=== PATIENT | female | born 1965 | race Caucasian/White ===

== ENCOUNTER 2025-05-08 11:06 | Outpatient (AMB) | payer BC, SELFPAY ==
--- OUTSIDE RECORDS SUMMARY | 2025-05-08 12:39 | XMS_ITS | Clinical Summary ---
Author Organization [facility] Address [address] [place] [address] Phone Care Team Providers Care Shift Supervisor Rn Name Role Phone Rosemarie Jara MD Primary Care Provider [phone] Allergies Active Allergy Reactions Criticality Noted Date Comments Jqjjborh-Qktzpinueif-Arunsze nb Hives Medium 05/04/2018 TRIPLE OINTMENT CREAM Sulfa (Sulfonamide Antibiotics) Hives High 05/04/2018 Sulfamethoxazole-Trimethopri m Rash High 02/18/2018 Medications montelukast (SINGULAIR) 10 mg tablet Take 1 Tablet by mouth daily. 2 Active lansoprazole (PREVACID SOLUTAB) 30 mg dispersible tablet Take 1 Tab by mouth daily. Active fluticasone-lucille meterol (ADVAIR DISKUS) 250-50 mcg/dose diskus inhaler Inhale 1 puff by mouth 2 (two) times a day. Rinse mouth with water after use to reduce aftertaste and incidence of candidiasis. Do not swallow. 3 each 4 5 01/19/20 26 Active losartan (COZAAR) 100 mg tablet Take 1 tablet (100 mg total) by mouth 1 (one) time each day. 90 each 5 5 Active cholecalciferol (Vitamin D3) 50 mcg (2,000 unit) tablet Take 1 tablet (2,000 Units total) by mouth 1 (one) time each day. 90 tablet 2 5 Active escitalopram (LEXAPRO) 20 mg tablet Take 1 tablet (20 mg total) by mouth 1 (one) time each day. 30 tablet 1 5 Active levalbuterol (XOPENEX HFA) 45 mcg/actuation inhaler Inhale 1-2 puffs by mouth. Active polyethylene glycol (Golytely) 236-22.74-6.74 -5.86 gram solution Take 4L by mouth once for one dose. May substitue any PEG. Starting at 2PM the day before your procedure drink 1 8oz glasses at your own pace until you complete half of the gallon. Finish 2nd half of the gallon at 8PM. 4000 mL 5 Active bisacodyL (DULCOLAX) 5 mg EC tablet Take 2 tablets by mouth right before beginning bowel prep. 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 Asthma 05/04/2018 Cough 05/04/2018 GERD (gastroesophageal reflux disease) 8 MARCEL (obstructive sleep apnea) 05/04/2018 Overview (09/18/2024): NOT TREATED (Aug 2019) Anxiety 01/28/2018 Allergic rhinitis 04/15/2017 Hypertension 04/15/2017 Depression 02/26/2016 Left ventricular hypertrophy 03/22/2014 Mitral regurgitation 03/22/2014 Arthritis 02/07/2014 Venous insufficiency 05/10/2013 Iron deficiency anemia 09/04/2011 Encounters Date Type Department Care Team Description 04/13/2025 10:16 AM EDT Anesthesia Event [facility] [address] [place] [phone] Isidro Tirado DO 04/13/2025 9:34 AM EDT - 04/13/2025 11:59 PM EDT Hospital Encounter [facility] [address] [place] [phone] Angélica España MD Guerin, Erik R, CRNA Walsh, Michael, DO Colon cancer screening Discharge Disposition: Home or Self Care 03/16/2025 2:30 PM EDT Office Visit Pulmonolgy - [place] [address] [place] [address] Marsha Farrell MD Moderate persistent asthma, unspecified whether complicated (Primary Dx) from Last 3 Months Immunizations Name Administration Dates Next Due Pneumococcal conjugate 13 va lent (Prevnar 13, PCV13) 2mo and older 07/16/2016 Pneumococcal polysaccharide 23 valent (Pneumovax 23) 2yo and older 07/25/2007 Tdap Tetanus diptheria acell ular pertussis (Boostrix; Adacel) 7yo and older 05/05/2012 Surgical History Surgery Date Site/Laterality Comments KNEE SURGERY Right PROCEDURE: HISTORICAL KNEE SURGERY OTHER SURGICAL HISTORY PROCEDURE: HISTORY OTHER; COMMENT: Colposcopy BREAST LUMPECTOMY Left X2 COLONOSCOPY ESOPHAGOGASTRODUODENOSCOPY Medical History Medical History Date Comments Allergic rhinitis 04/15/2017 DX:Allergic rh initis Anxiety 01/28/2018 DX:Anxiety Arthritis 02/07/2014 DX:Arthritis Asthma 05/04/2018 DX:Asthma Cough 05/04/2018 DX:Cough Depression 02/26/2016 DX:Depression GERD (gastroesophageal reflu x disease) 05/04/2018 DX:GERD (gastroesophageal re flux disease) History of herpes zoster 01/08/2017 DX:Hist ory of herpes zoster Hypertension 04/15/2017 DX:Hypertension Iron deficiency anemia 09/04/2011 DX:Iron d eficiency anemia Left ventricular hypertrophy 03/22/2014 DX: Left ventricular hypertrophy Mitral regurgitation 03/22/2014 DX:Mitral r egurgitation MARCEL (obstructive sleep apnea) 05/04/2018 DX :MARCEL (obstructive sleep apnea) Venous insufficiency 05/10/2013 DX:Venous i nsufficiency Family History Medical History Relation Name Comments Hypertension Father Hypertension Mother Relation Name Status Comments Father Mother Social History Tobacco Use Types Packs/Day Years Used Date Smoking Tobacco: Never Smokeless Tobacco: Never Tobacco Cessation:Counseling Given: Not Answered Alcohol Use Standard Drinks/Week Comments No 0 (1 standard drink = 0.6 oz pur e alcohol) Interpersonal Safety Answer Date Record ed Physical Abuse 04/13/2025 Verbal Abuse 04/13/2025 Comments No Sex and Gender Information Value Date Recorded Sex Assigned at Female 08/09/2024 1:18 PM EST Legal Sex Female 4:45 AM EST Gender Identity Female 08/09/2024 1:18 PM EST Sexual Orientation Straight 04/13/2025 9: 34 AM EDT Obstetrics History Last Filed Vital Signs Vital Sign Reading Time Taken Comments Blood Pressure 140/50 04/13/2025 10:52 AM EDT Pulse 73 04/13/2025 10:52 AM EDT Temperature 36.5 C (97.7 F) 04/13/2025 10:32 AM EDT Respiratory Rate 16 04/13/2025 10:52 AM EDT Oxygen Saturation 100% 04/13/2025 10:52 AM EDT Inhaled Oxygen Concentration - - Weight 99.8 kg (220 lb) 04/13/2025 10:09 AM EDT Height 170.2 cm (5' 7 ) 04/13/2025 10:09 AM EDT Body Mass Index 34.46 04/13/2025 10:09 AM EDT Plan of Treatment Upcoming Encounters Date Type Department Care Team (Late st Contact Info) Description 03/20/2026 2:00 PM EDT Office Visit Pulmonolgy - [place] [address] [place] [phone] Marsha Farrell MD [address] [place] [address] Health Maintenance Due Date Last Done Comments Breast Cancer Screening 1965 COVID-19 Vaccine (#1) 1969 Zoster Vaccines (1 of 2) 12/12/1983 Pneumococcal Vaccine: 50+ Years (3 of 3 - PPSV23, PCV20 or PCV21) 09/10/2016 07/16/2016, 07/25/2007 HIV Screening 08/29/2022 Hepatitis C Screening 08/29/2022 Social Influencers of Health Screening 08/29/2022 Depression Screening 09/20/2024 RSV Immunization Adult Patients (1 - Risk 60-74 years 1-dose series) 2024 Influenza Vaccine (#1) 2025 8, 07/01/2017, 07/04/2015, Additional history exists Cervical Cancer Screening: Pap Smear 10/28/2025 10/28/2022 Hypertension/CHF/CAD Annual BMP Blood Test 01/29/2026 01/29/2025, 12/13/2023 DTaP,Tdap,and Td Vaccines (3 - Td or Tdap) 07/12/2028 07/12/2018, 05/05/2012 Cholesterol Screening (Lipid Panel) 01/29/2030 01/29/2025, 12/13/2023 Colorectal Cancer Screening: Colonoscopy 04/13/2035 04/13/2025, 12/17/2014 HIB Vaccines Aged Out No longer eligi ble based on patient's age to complete this topic HPV Vaccines Aged Out No longer eligi ble based on patient's age to complete this topic Hepatitis A Vaccines Aged Out No long er eligible based on patient's age to complete this topic Hepatitis B Vaccines Aged Out No long er eligible based on patient's age to complete this topic IPV Vaccines Aged Out No longer eligi ble based on patient's age to complete this topic MMR Vaccines Aged Out No longer eligi ble based on patient's age to complete this topic Meningococcal ACWY Vaccine Aged Out N o longer eligible based on patient's age to complete this topic Meningococcal B Vaccine Aged Out No l onger eligible based on patient's age to complete this topic RSV Immunization Patients Under 20 months Aged Out No longer eligible based on patient's age to complete this topic Varicella Vaccines Aged Out No longer eligible based on patient's age to complete this topic Medical Devices Implanted Type Area Synthetic Chemist Device Identifier Shelf Expiration Date Model / Serial / Lot Implants Implants Right: Leg Description:PLATES AND SCREW FROM FRACTURE Procedures Procedure Name Priority Date/Time Associated Diagnosis Comments COLONOSCOPY Routine 04/13/2025 10:31 AM EDT Colon cancer screening EXTERNAL ENDOSCOPY REPORT Routine 03/26/2025 11:02 AM EDT COMPREHENSIVE METABOLIC PANEL Routine 01/29/2025 10:04 AM EDT Primary hypertension Iron deficiency anemia, unspecified iron deficiency anemia type Depression, unspecified depression type Adult general medical examination Vitamin D deficiency LIPID PANEL WITH REFLEX TO DIRECT LDL Routine 01/29/2025 10:04 AM EDT Primary hypertension Iron deficiency anemia, unspecified iron deficiency anemia type Depression, unspecified depression type Adult general medical examination Vitamin D deficiency HM PAP SMEAR Routine 10/28/2022 from Last 3 Months or Most Recently Relevant to Health Maintenance Results * COLONOSCOPY Anesthesia - MAC; [facility] ENDOSCOPY (04/13/2025 10:31 AM EDT) Anatomical Region Laterality Modality Endoscopy 04/13/2025 10:1 7 AM EDT Impressions 04/13/2025 10:31 AM EDT - The examined portion of the ileum was normal. - Internal hemorrhoids. - The entire examined colon is normal. - No specimens collected. Recommendation: - Repeat colonoscopy in 10 years for screening purposes. Narrative 04/13/2025 10:31 AM EDT [facility] GI Patient Name: Kendra Owusu Procedure Date: 04/13/2025 10:17 AM Date of : 1965 Age: 59 Gender: Female Note Status: Finalized Attending MD: Angélica España MD, Procedure Date No Time: 04/13/2025 Procedure: Colonoscopy Indications: Screening for colorectal malignant neoplasm Providers: Angélica España MD Referring MD: Rosemarie Jara MD Medicines: Propofol per Anesthesia Complications: No immediate complications. Estimated Blood Loss: Estimated blood loss: none. Procedure: Pre-Anesthesia Assessment: - ASA Grade Assessment: III - A patient with severe systemic disease. After I obtained informed consent, the scope was passed under direct vision. Throughout the procedure, the patient's blood pressure, pulse, and oxygen saturations were monitored continuously.The Colonoscope was introduced through the anus and advanced to the terminal ileum. The colonoscopy was performed without difficulty. The patient tolerated the procedure well. The quality of the bowel preparation was excellent. Findings: The perianal and digital rectal examinations were normal. The terminal ileum appeared normal. Internal hemorrhoids were found during retroflexion. The hemorrhoids were Grade I (internal hemorrhoids that do not prolapse). The entire examined colon appeared normal. Procedure Code(s): --- Professional --- G0121, Colorectal cancer screening; colonoscopy on individual not meeting criteria for high risk Diagnosis Code(s): --- Professional --- Z12.11, Encounter for screening for malignant neoplasm of colon CPT copyright 2020 [employer]. All rights reserved. The codes documented in this report are preliminary and upon diamond polisher review may be revised to meet current compliance requirements. Angélica España MD 04/13/2025 10:31:44 AM This report has been signed electronically.Angélica España MD Number of Addenda: 0 Note Initiated On: 04/13/2025 10:17 AM Scope In: Scope Out: Endoscopy Department at [facility] - [address] [place] [id number] Procedure Note Angélica España MD - 04/13/2025 [facility] GI Patient Name: Kendra Owusu Procedure Date: 04/13/2025 10:17 AM Date of : 1965 Age: 59 Gender: Female Note Status: Finalized Attending MD: Angélica España MD, Procedure Date No Time: 04/13/2025 Procedure: Colonoscopy Indications: Screening for colorectal malignant neoplasm Providers: Angélica España MD Referring MD: Rosemarie Jara MD Medicines: Propofol per Anesthesia Complications: No immediate complications. Estimated Blood Loss: Estimated blood loss: none. Procedure: Pre-Anesthesia Assessment: - ASA Grade Assessment: III - A patient with severe systemic disease. After I obtained informed consent, the scope was passed under direct vision. Throughout theprocedure, the patient's blood pressure, pulse, and oxygen saturations were monitored continuously.The Colonoscope was introduced through the anus and advanced to the terminal ileum. The colonoscopy was performed without difficulty. The patient tolerated the procedure well. The quality of the bowel preparation was excellent. Findings: The perianal and digital rectal examinations were normal. The terminal ileum appeared normal. Internal hemorrhoids were found duringretroflexion. The hemorrhoids were Grade I (internal hemorrhoids that do not prolapse). The entire examined colon appeared normal. Procedure Code(s): --- Professional --- G0121, Colorectal cancer screening; colonoscopy on individual not meeting criteria for high risk Diagnosis Code(s): --- Professional --- Z12.11, Encounter for screening for malignantneoplasm of colon CPT copyright 2020 [employer]. All rights reserved. The codes documented in this report are preliminary and upon diamond polisher reviewmay be revised to meet current compliance requirements. Angélica España MD 04/13/2025 10:31:44 AM This report has been signed electronically.Angélica España MD Number of Addenda: 0 Note Initiated On: 04/13/2025 10:17 AM Scope In: Scope Out: Endoscopy Department at [facility] - [address] [place] [phone] IMPRESSION: - The examined portion of the ileum was normal. - Internal hemorrhoids. - The entire examined colon is normal. - No specimens collected. Recommendation: - Repeat colonoscopy in 10 years for screening purposes. Angélica España MD GI~PROCEDURE ORDERABLES Final Result * External Endoscopy (03/26/2025 11:02 AM EDT) Anatomical Region Laterality Modality Endoscopy Historical Provider GI~PROCEDURE ORDERABLES F inal Result * (ABNORMAL) Lipid panel with reflex to direct LDL (01/29/2025 10:04 AM EDT) Cholesterol 200 0 - 200 mg/dL LAB [facility] Triglycerides 121 0 - 150 mg/dL LAB CHEMISTRY METHOD 01/29/2025 4:34 PM [facility] HDL 60 >=40 mg/dL LAB CHEMISTRY METHOD 01/29/2025 4:34 PM [facility] LDL Calculated 116(H) 0 - 100 mg/dL LAB CHEMISTRY METHOD 01/29/2025 4:34 PM [facility] VLDL Cholesterol Omero 24.2 mg/dL LAB CHEMISTRY METHOD 01/29/2025 4:34 PM [facility] Non HDL Chol. (LDL+VLDL) 140 <145 mg/dL LAB CHEMISTRY METHOD 01/29/2025 4:34 PM [facility] Chol/HDL Ratio 3.3 0.0 - 4.4 LAB CHEMISTRY METHOD 01/29/2025 4:34 PM [facility] Blood Venous blood specimen / Unknown Venipuncture / Unknown 01/29/2025 10:04 AM EDT 01/29/2025 10:04 AM EDT us Rosemarie Jara MD LAB BLOOD ORDERABLES Final Res ult [facility] [address] [place] [address], [place] [phone] * (ABNORMAL) Comprehensive metabolic panel (01/29/2025 10:04 AM EDT) Pathologist [facility] Sodium 143 133 - 145 mmol/L LAB CHEMISTRY METHOD 01/29/2025 4:34 PM [facility] Potassium 5.1 3.5 - 5.5 mmol/L LAB CHEMISTRY METHOD 01/29/2025 4:34 PM [facility] Chloride 111(H) 96 - 110 mmol/L LAB CHEMISTRY METHOD 01/29/2025 4:34 PM [facility] CO2 27 21 - 32 mmol/L LAB CHEMISTRY METHOD 01/29/2025 4:34 PM [facility] Anion Gap 5 3 - 11 LAB CHEMISTRY METHOD 01/29/2025 4:34 PM [facility] Glucose 82 70 - 100 mg/dL LAB CHEMISTRY METHOD 01/29/2025 4:34 PM [facility] BUN 16 5 - 25 mg/dL LAB CHEMISTRY METHOD 01/29/2025 4:34 PM [facility] Creatinine 0.65 0.50 - 1.10 mg/dL LAB CHEMISTRY METHOD 01/29/2025 4:34 PM [facility] eGFR 101 >=60 mL/min/1. 73m2 LAB CHEMISTRY METHOD 01/29/2025 4:34 PM [facility] Comment:Calculation based on the Chronic Kidney Disease Epidemiology Collaboration (CKD-EPI) equation refit without adjustment for race. BUN/Creatinine Ratio 24.6 LAB CHEMISTRY METHOD 01/29/2025 4:34 PM [facility] Calcium 8.8 8.5 - 10.5 mg/dL LAB CHEMISTRY METHOD 01/29/2025 4:34 PM EDT [facility] AST (SGOT) 26 10 - 42 unit/L LAB CHEMISTRY METHOD 01/29/2025 4:34 PM [facility] ALT (SGPT) 36 10 - 60 unit/L LAB CHEMISTRY METHOD 01/29/2025 4:34 PM [facility] Alkaline Phosphatase 103 42 - 121 unit/L LAB CHEMISTRY METHOD 01/29/2025 4:34 PM [facility] Total Protein 6.7 6.0 - 8.0 g/dL LAB CHEMISTRY METHOD 01/29/2025 4:34 PM [facility] Albumin 3.6 3.2 - 5.0 g/dL LAB CHEMISTRY METHOD 01/29/2025 4:34 PM [facility] Total Bilirubin 0.3 0.0 - 1.4 mg/dL LAB CHEMISTRY METHOD 01/29/2025 4:34 PM [facility] Blood Venous blood specimen / Unknown Venipuncture / Unknown 01/29/2025 10:04 AM EDT 01/29/2025 10:04 AM EDT Rosemarie Jara MD LAB BLOOD ORDERABLES Final Res ult [facility] [address] [place] [address], * Pap Smear (10/28/2022) Pap smear no interpretation , abstracted Historical Provider HEALTH MAINTENANCE Final Result from Last 3 Months or Most Recently Relevant to Health Maintenance Insurance [facility] Care Teams Shift Supervisor Rn Relationship Specialty Start Date End Date Rosemarie Jara MD [address] [phone] PCP - General Internal Medicine 02/06/19
--- OUTSIDE RECORDS SUMMARY | 2025-05-08 12:39 | XMS_ITS | Clinical Summary ---
Author Organization [facility] Address [address] [place] [phone] Phone Care Team Providers Care Auto Apprentice Mechanic Name Role Phone Rosemarie Jara MD Primary Care Provider Allergies Active Allergy Reactions Criticality Noted Date Comments Sulfamethoxazole-Trimethoprim 2017 Sulfa (Sulfonamide Antibiotics) 09/2017 Medications fluticasone-lucille meterol (ADVAIR DISKUS) 500-50 mcg/dose DISKUS Inhale 1 puff into the lungs 2 (two) times a day. Active losartan (COZAAR) 25 MG tablet Take 25 mg by mouth daily. Active montelukast (SINGULAIR) 10 mg tablet Take 10 mg by mouth. Active cycloSPORINE (RESTASIS) 0.05 % suspension INSTILL 1 DROP TWICE DAILY INTO BOTH EYES CONTINUOUSLY 3 Active escitalopram oxalate (LEXAPRO) 20 MG tablet Take 1 tablet by mouth every morning. 3 Active lansoprazole (PREVACID) 30 MG capsule Take 1 capsule by mouth 2 (two) times a day. 3 Active clobetasoL 0.05 % ltpm Apply topically. 4 Active cholecalciferol (VITAMIN D3) 2,000 unit tablet Take 2,000 Units by mouth. 5 Active halobetasol (ULTRAVATE) 0.05 % ointment See Instructions, Apply thin film to vulva daily x 2 weeks afterwards apply to area 2 to 3 times a week, # 50 Gm, 0 Refills, Maintenance, 01/31/25 11:07:00 AM EDT, Ointment, [id number], Partial fill upon patient request if the prescription is for a schedule II opioid drug., Apply thin film to vulva daily x 2 weeks afterwards apply to area 2 to 3 times a week, 157, cm, 01/31/25 10:17:00 EDT, Height, 93.8, kg, 06/02/23 15:07:00 EDT, Dry Weight Active Active Problems Problem Noted Date Diagnosed Date Class 2 obesity 05/07/2023 05/07/2023 Encounters Date Type Department Care Team Description 03/09/2025 Telephone [facility] at [address] [address] Blair Abel PA-C 03/09/2025 Telephone [facility] at [address] [place] [address] Isabela Kelly, GLASS LATHE OPERATOR Labs 03/07/2025 1:50 PM EDT Office Visit [facility] at [address] [address] Melissa Holcomb PA-C Acute cystitis without hematuria (Primary Dx) from Last 3 Months Immunizations Immunization Administration Dates Next Due INFLUENZA, SPLIT VIRUS, TRIVALENT PF 07/01/2017, 07/04/2015 INFLUENZA, SPLIT VIRUS, TRIVALENT W/ PRESERVATIV E IM 06/20/2014 Influenza Quadrivalent Preservative Free IM 06/21 Tdap 07/12/2018 Social History Tobacco Use Types Packs/Day Years Used Date Smoking Tobacco: Never Smokeless Tobacco: Never Tobacco Cessation:Counseling Given: Not Answered Alcohol Use Standard Drinks/Week Comments No 0 (1 standard drink = 0.6 oz pur e alcohol) Education Answer Date Recorded Are you interested in more education? Not on belkis e 01/15/2023 Are you concerned about learning? Not on file 01/15/2023 No 01/15/2023 No 01/15/2023 Digital Access Answer Date Recorded No 02/15/2023 No 02/15/2023 Reliable internet access at home? Not on file 02/15/2023 Device with a working camera? Not on file Intimate Partner Violence Answer Date R ecorded Are you denied basic needs s uch as food, clothing, or medical care? No 07/21/2023 In the past 12 months have y ou been in a relationship with a person who hurts, threatens, or tries to control you? No 07/21/2023 Are you denied basic needs s uch as food, clothing, or medical care? No 07/21/2023 In the past 12 months have y ou been in a relationship with a person who hurts, threatens, or tries to control you? No 07/21/2023 Comments Unknown Sex and Gender Information Value Date Recorded Sex Assigned at Female 02/18/2018 11:40 AM EDT Legal Sex Female 9:42 PM EDT Gender Identity Female 02/18/2018 11:40 AM EDT Sexual Orientation Straight 02/18/2018 11 :40 AM EDT Last Filed Vital Signs Vital Sign Reading Time Taken Comments Blood Pressure 131/80 03/07/2025 2:12 PM EDT Pulse 78 03/07/2025 2:12 PM EDT Temperature 36.7 C (98 F) 03/07/2025 2:12 PM EDT Respiratory Rate 18 03/07/2025 2:12 PM EDT Oxygen Saturation 97% 03/07/2025 2:12 PM EDT Inhaled Oxygen Concentration - - Weight 90.7 kg (200 lb) 07/21/2023 8:16 PM EDT Height 157.5 cm (5' 2 ) 07/21/2023 8:16 PM EDT Body Mass Index 36.58 07/21/2023 8:16 PM EDT Plan of Treatment Health Maintenance Due Date Last Done Comments CREATININE LEVEL 1964 POTASSIUM LEVEL 1964 DEPRESSION SCREENING 1976 HEPATITIS C SCREENING 1982 HIV ONE-TIME SCREENING (18-6 5 YEARS) 1982 PAP SMEAR 1985 SCREENING FOR DIABETES 12/12/1999 MAMMOGRAM 2004 COLOGUARD 2009 COLONOSCOPY 2009 COLORECTAL CANCER SCREENING 2009 FIT TEST 2009 FOBT 2009 SIGMOIDOSCOPY 2009 VIRTUAL COLONOSCOPY 2009 PNEUMOCOCCAL VACCINES (50+ y ears) (1 of 1 - PCV) 2014 ZOSTER VACCINES (1 of 2) 2014 COVID-19 VACCINE (1 - 2023-2 5 season) 2024 Adult Td,Tdap Booster 07/12/2028 07/12/2018 LIPID PANEL 01/29/2030 01/29/2025 RSV VACCINE (1 - 1-dose 75+ series) 12/12/2039 SMOKING STATUS SCREENING (On ce After 26 Yrs) Completed 08/14/2024 HEPATITIS A VACCINES Aged Out No long er eligible based on patient's age to complete this topic HIB VACCINES Aged Out No longer eligi ble based on patient's age to complete this topic MENINGOCOCCAL VACCINES (ACWY) Aged Out No longer eligible based on patient's age to complete this topic MENINGOCOCCAL VACCINES (B) Aged Out N o longer eligible based on patient's age to complete this topic Medical Devices Not on file Procedures Procedure Name Priority Date/Time Associated Diagnosis Comments URINE CULTURE Routine 03/07/2025 2:45 PM EDT Acute cystitis without hematuria POCT URINE DIPSTICK Routine 03/07/2025 2 :21 PM EDT from Last 3 Months Results * (ABNORMAL) Urine Culture (03/07/2025 2:45 PM EDT) Special Requests None 03/07/2025 2:45 PM EDT [facility] Urine Culture 10,000 to 100,000 colony forming units per mL MIXED JESSIE (3 OR MORE COLONY TYPES) Culture indicates contamination . Please resubmit if necessary.(A) 03/09/2025 8:43 AM EDT [facility] Urine (Urine) 03/07/2025 2:4 5 PM EDT 03/07/2025 4:36 PM EDT us Melissa Holcomb PA-C MICROBIOLOGY - GENER AL ORDERABLES Final Result [facility] [address] [place] [address] * (ABNORMAL) POCT Urine Dipstick (Automated) (03/07/2025 2:21 PM EDT) COLOR Yellow [facility] TURBIDITY Clear [facility] GLUCOSE, POCT Negative Negative [facility] KETONE, POCT Negative Negative [facility] OCCULT BLOOD, POCT Negative Negative [facility] SPECIFIC GRAVITY, POCT 1.015 1.001 - 1.030 [facility] ALBUMIN, POCT Negative Negative [facility] Bili Negative Negative [facility] Urobilinogen 0.2 <1.0 [facility] NITRITE, POCT Negative Negative [facility] PH, POCT 7.5 5.0 - 8.0 [facility] WBC SCREEN, POCT 1+(A) Negative RAILROAD YARD WORKER EDEN [facility] 03/07/2025 2:21 PM EDT 03/07/2025 2:23 PM EDT Melissa Holcomb PA-C POINT OF CARE TEST O RDERABLES Final Result [facility] [address] [address], [facility] [phone] from Last [address] [place] [address] [place] [address] [facility] [address] [place] [address] [place] [address] [place] [address] [place] [address] [address] [place] [address] [employer] FED[employer]AL [place] [employer] FEDERAL Member Subscriber Plan / Payer (Ef fective 2016-Present) Name:Andrew Ceci Relation to Subscriber:Self Name:Ceci Andrew Payer ID:Not on file Group ID:Not on file Type:Indemnity Address: [address] [place] [id number] Care Teams Auto Apprentice Mechanic Relationship Specialty Start Date End Date Rosemarie Jara MD [address] [phone] PCP - General Internal Medicine 04/14/21 Additional Source Comments The information contained in this document represents components of the legal health record. It is not the complete legal health record.[facility]
== END 2025-05-08 11:12 | disposition home or self-care (01) ==
PROVIDERS: Visit Provider Registered Nurse Emergency
DX: J30.89 Other allergic rhinitis (principal)
CPT/HCPCS: 95117; 95165

== ENCOUNTER 2025-05-28 09:50 | Outpatient (AMB) | payer BC, SELFPAY ==
--- OUTSIDE RECORDS SUMMARY | 2025-05-28 11:26 | XMS_ITS | Encounter Summary ---
Author Organization [facility] Address [address] [facility] [address] [place] [address] Phone Care Team Providers Care Foil Cutter Name Role Phone Emily Forbes MD Primary Care Provide r Rosemarie Jara MD Primary Care Provider Reason for Referral * Physical Therapy (Routine) - Closed Specialty Diagnoses / Procedures Referred By Hansa [place] Referred To Contact Physical Therapy Diagnoses Encounter for rehabilitation System, Provider Not In, [facility] [id number] [place] [address] Phone: tel: Referral ID Status Reason Start Date Expiration Date Visits Re quested Visits Authorized [id number] Closed 10/04/2017 02/08/2018 42 42 Encounter Details Date Type Department Care Team (Latest Contact Info) Description 10/14/2017 Transcribe Orders [facility] [address] [place] [phone] Nate Shi MD [address] [place] [address] [address] [place] [address] Encounter for rehabilitation (Primary Dx) Social History Tobacco Use Types Packs/Day Years Used Date Smoking Tobacco: Never Assessed Comments Unknown Sex and Gender Information Value Date Recorded Sex Assigned at Female 02/18/2018 11:40 AM EDT Legal Sex Female 9:42 PM EDT Gender Identity Female 02/18/2018 11:40 AM EDT Sexual Orientation Straight 02/18/2018 11 :40 AM EDT documented as of this encounter Plan of Treatment Scheduled Referrals Name Type Priority Associated Diagnoses Orde r Schedule Ambulatory referral to [facility] Physical Therapy Outpatient Referral Routine Encounter for rehabilitation Ordered: 10/14/2017 documented as of this encounter Visit Diagnoses Diagnosis Encounter for rehabilitation- Primary documented in this encounter Care Teams Foil Cutter Relationship Specialty Start Date End Date Emily Forbes MD [address] [place] [address] PCP - General Geriatric Psychiatry 07/17/17 04/13/21 Rosemarie Jara MD [address] [place] [phone] PCP - General Internal Medicine 04/14/21 documented as of this encounter Additional Source Comments The information contained in this document represents components of the legal health record. It is not the complete legal health record.[facility]
--- OUTSIDE RECORDS SUMMARY | 2025-05-28 11:26 | XMS_ITS | Clinical Summary ---
Author Organization [facility] Address [address] [place] [phone] Phone Care Team Providers Care Watch Band Assembler Name Role Phone Rosemarie Jara MD Primary Care Provider [phone] Allergies Active Allergy Reactions Criticality Noted Date [...] Refills, Maintenance, 01/31/25 11:07:00 AM EDT, Ointment, [id number], Partial fill upon patient request if the [...] Department Care Team Description 03/09/2025 Telephone [facility] at [address] [address] Bliar Abel PA-C 03/09/2025 Telephone [facility] at [address] [place] [address] Isabela Kelly, DAY TREATMENT CLINICIAN/ART THERAPIST Labs 03/07/2025 1:50 PM EDT Office Visit [facility] at [address] [address] Melissa Holcomb PA-C Acute cystitis without hematuria [...] HEPATITIS C SCREENING 1982 HIV ONE-TIME SCREENING (18-65 YEARS) 1982 PAP SMEAR 1985 SCREENING FOR DIABETES 12/12/1999 MAMMOGRAM 2004 COLOGUARD 2009 COLONOSCOPY 2009 COLORECTAL CANCER SCREENING 2009 FIT TEST 2009 FOBT 2009 SIGMOIDOSCOPY 2009 VIRTUAL COLONOSCOPY 2009 PNEUMOCOCCAL VACCINES (50+ years) (1 of 1 - PCV) 2014 ZOSTER VACCINES (1 of 2) 2014 INFLUENZA VACCINE (#1) 2025 8, 07/01/2017, 07/04/2015, Additional history exists COVID-19 VACCINE (1 - 2023- season) 2025 Adult Td,Tdap Booster 07/12/2028 07/12/2018 LIPID PANEL 01/29/2030 01/29/2025 RSV VACCINE (1 - 1-dose 75+ series) 12/12/2039 SMOKING STATUS SCREENING (Once After 26 Yrs) Completed 08/14/2024 HEPATITIS A [...] Special Requests None 03/07/2025 2:45 PM EDT [facility] Urine Culture 10,000 to 100,000 colony forming units per mL MIXED JESSIE (3 OR MORE COLONY TYPES) Culture indicates contamination . Please resubmit if necessary.(A) 03/09/2025 8:43 AM EDT [facility] Urine (Urine) 03/07/2025 2:4 5 PM EDT 03/07/2025 4:36 PM EDT us Melissa Holcomb PA-C MICROBIOLOGY - GENER AL ORDERABLES Final Result [facility] [address] [place] [address] * (ABNORMAL) POCT Urine Dipstick (Automated) (03/07/2025 2:21 PM EDT) [facility] Signature COLOR Yellow [facility] TURBIDITY Clear [facility] GLUCOSE, POCT Negative Negative [facility] KETONE, POCT Negative Negative [facility] OCCULT BLOOD, POCT Negative Negative [facility] SPECIFIC GRAVITY, POCT 1.015 1.001 - 1.030 [facility] ALBUMIN, POCT Negative Negative [facility] Bili Negative Negative [facility] Urobilinogen 0.2 <1.0 [facility] NITRITE, POCT Negative Negative [facility] PH, POCT 7.5 5.0 - 8.0 [facility] WBC SCREEN, POCT 1+(A) Negative IP NETWORK ARCHITECT EDEN [facility] 03/07/2025 2:21 PM EDT 03/07/2025 2:23 PM EDT us Melissa BANUELOS-Estrada POINT OF CARE TEST O RDERABLES Final Result [facility] AT [address] [address], [facility] [phone] from Last [address] [place] [address] [place] [address] [place] [address] [place] [address] [place] [address] FEDERAL [employer] FED[employer] FEDERAL Care Teams Watch Band Assembler Relationship Specialty Start Date End Date Rosemarie Jara MD [address] [place] [phone] PCP - General Internal Medicine 04/14/21 Additional Source Comments The information contained in this document represents components of the legal health record. It is not the complete legal health record.[facility]
--- OUTSIDE RECORDS SUMMARY | 2025-05-28 11:26 | XMS_ITS | Clinical Summary ---
Author Organization [facility] Address [address] [place] [address] Phone Care Team Providers Care Manufacturing Engineer Assembly Name Role Phone Rosemarie Jara MD Primary Care Provider [phone] Allergies Active Allergy Reactions Criticality Noted Date Comments Vkapaoxj-Vrrqcjauciu-Mergiqg nb Hives Medium 05/04/2018 TRIPLE OINTMENT CREAM Sulfa (Sulfonamide Antibiotics) Hives High 05/04/2018 Sulfamethoxazole-Trimethopri m Rash High 02/18/2018 Medications montelukast (SINGULAIR) 10 mg tablet Take 1 Tablet by mouth daily. 01/31/20 22 Active lansoprazole (PREVACID SOLUTAB) 30 mg dispersible tablet Take 1 Tab by mouth daily. Active fluticasone-sa lmeterol (ADVAIR DISKUS) 250-50 mcg/dose diskus inhaler Inhale 1 puff by mouth 2 (two) times a day. Rinse mouth with water after use to reduce aftertaste and incidence of candidiasis. Do not swallow. 3 each 4 01/19/20 25 026 Active losartan (COZAAR) 100 mg tablet Take 1 tablet (100 mg total) by mouth 1 (one) time each day. 90 each 5 01/23/20 25 Active cholecalcifero l (Vitamin D3) 50 mcg (2,000 unit) tablet Take 1 tablet (2,000 Units total) by mouth 1 (one) time each day. 90 tablet 2 01/31/20 25 Active levalbuterol (XOPENEX HFA) 45 mcg/actuation inhaler [...] of the gallon at 8PM. 4000 mL 03/30/20 25 Active bisacodyL (DULCOLAX) 5 mg EC tablet Take 2 tablets by mouth right before beginning bowel prep. See instructions provided by the office 2 tablet 03/30/20 25 Active cephalexin (KEFLEX) 250 mg capsule 04/12/20 25 Active escitalopram (LEXAPRO) 20 mg tablet TAKE 1 TABLET(20 MG) BY MOUTH 1 TIME EACH DAY 30 tablet 1 05/25/20 25 Active escitalopram (LEXAPRO) 20 mg tablet Take 1 tablet (20 mg total) by mouth 1 (one) time each day. 30 tablet 1 03/13/20 25 025 Discontinued Active Problems Problem Noted Date Diagnosed Date [...] Description 04/13/2025 10:16 AM EDT Anesthesia Event [facility] [address] [place] [phone] Isidro Tirado DO 04/13/2025 9:34 AM EDT - 04/13/2025 11:59 PM EDT Hospital Encounter [facility] [address] [place] [phone] Angélica España MD Guerin, Erik R, CRNA Walsh, Michael, DO Colon cancer screening Discharge Disposition: Home or Self Care 03/16/2025 2:30 PM EDT Office Visit [address] [place] [address] Marsha Farrell MD Moderate persistent [...] 2:00 PM EDT Office Visit Pulmonolgy - [place] [address] [facility] [address] [place] [address] Marsha Farrell MD 175 [facility] [address] [place] [address] Health Maintenance Due Date Last Done Comments [...] this topic Medical Devices Implanted Type Area Sanitation Worker Hosing Machinery Device Identifier Shelf Expiration Date Model / [...] Maintenance Results * COLONOSCOPY Anesthesia - MAC; [facility] END[facility]COPY (04/13/2025 10:31 AM EDT) Anatomical Region Laterality Modality Endoscopy 04/13/2025 10:1 7 AM EDT Impressions 04/13/2025 10:31 AM EDT - The examined portion of the ileum was normal. - Internal hemorrhoids. - The entire examined colon is normal. - No specimens collected. Recommendation: - Repeat colonoscopy in 10 years for screening purposes. Narrative 04/13/2025 10:31 AM EDT [facility] Patient Name: Kendra Owusu Procedure Date: [...] malignant neoplasm of colon CPT copyright 2020 [employer]. All rights reserved. The codes documented in this report are preliminary and upon motion picture cameraman review may be revised to meet current compliance requirements. Angélica España MD 04/13/2025 10:31:44 AM This report has been signed electronically.Angélica España MD Number of Addenda: 0 Note Initiated On: 04/13/2025 10:17 AM Scope In: Scope Out: Endoscopy Department at [facility] - [address] [place] [phone] Procedure Note Angélica España MD - 04/13/2025 [facility] Patient Name: Kendra Owusu Procedure Date: [...] for malignantneoplasm of colon CPT copyright 2020 [employer]. All rights reserved. The codes documented in this report are preliminary and upon motion picture cameraman reviewmay be revised to meet current compliance requirements. Angélica España MD 04/13/2025 10:31:44 AM This report has been signed electronically.Angélica España MD Number of Addenda: 0 Note Initiated On: 04/13/2025 10:17 AM Scope In: Scope Out: Endoscopy Department at [facility] - [address] [place] [phone] IMPRESSION: - The examined portion of the [...] LAB CHEMISTRY METHOD 01/29/2025 4:34 PM EDT [facility] Triglycerides 121 0 - 150 mg/dL LAB CHEMISTRY METHOD 01/29/2025 4:34 PM EDT [facility] HDL 60 >=40 mg/dL LAB CHEMISTRY METHOD 01/29/2025 4:34 PM EDT [facility] LDL Calculated 116(H) 0 - 100 mg/dL LAB CHEMISTRY METHOD 01/29/2025 4:34 PM [facility] VLDL Cholesterol Omero 24.2 mg/dL LAB CHEMISTRY METHOD 01/29/2025 4:34 PM EDT [facility] Non HDL Chol. (LDL+VLDL) 140 <145 mg/dL LAB CHEMISTRY METHOD 01/29/2025 4:34 PM EDT [facility] Chol/HDL Ratio 3.3 0.0 - 4.4 LAB CHEMISTRY METHOD 01/29/2025 4:34 PM [facility] Blood Venous blood specimen / Unknown Venipuncture / Unknown 01/29/2025 10:04 AM EDT 01/29/2025 10:04 AM EDT us Rosemarie Jara MD LAB BLOOD ORDERABLES Final Res ult [facility] [address] [place] [address], [place] [phone] * (ABNORMAL) Comprehensive metabolic panel (01/29/2025 10:04 AM EDT) Sodium 143 133 - 145 mmol/L LAB CHEMISTRY METHOD 01/29/2025 4:34 PM [facility] Potassium 5.1 3.5 - 5.5 mmol/L LAB CHEMISTRY METHOD 01/29/2025 4:34 PM [facility] Chloride 111(H) 96 - 110 mmol/L LAB CHEMISTRY METHOD 01/29/2025 4:34 PM [facility] CO2 27 21 - 32 mmol/L LAB CHEMISTRY METHOD 01/29/2025 4:34 PM [facility] Anion Gap 5 3 - 11 LAB CHEMISTRY METHOD 01/29/2025 4:34 PM [facility] Glucose 82 70 - 100 mg/dL LAB CHEMISTRY METHOD 01/29/2025 4:34 PM [facility] BUN 16 5 - 25 mg/dL LAB CHEMISTRY METHOD 01/29/2025 4:34 PM [facility] Creatinine 0.65 0.50 - 1.10 mg/dL LAB CHEMISTRY METHOD 01/29/2025 4:34 PM [facility] eGFR 101 >=60 mL/min/1. 73m2 LAB CHEMISTRY METHOD 01/29/2025 4:34 PM [facility] Comment:Calculation based on the Chronic Kidney Disease Epidemiology Collaboration (CKD-EPI) equation refit without adjustment for race. BUN/Creatinine Ratio 24.6 LAB CHEMISTRY METHOD 01/29/2025 4:34 PM [facility] Calcium 8.8 8.5 - 10.5 mg/dL LAB CHEMISTRY METHOD 01/29/2025 4:34 PM [facility] AST (SGOT) 26 10 - 42 unit/L LAB CHEMISTRY METHOD 01/29/2025 4:34 PM [facility] ALT (SGPT) 36 10 - 60 unit/L LAB CHEMISTRY METHOD 01/29/2025 4:34 PM [facility] Alkaline Phosphatase 103 42 - 121 unit/L LAB CHEMISTRY METHOD 01/29/2025 4:34 PM [facility] Total Protein 6.7 6.0 - 8.0 g/dL LAB CHEMISTRY METHOD 01/29/2025 4:34 PM [facility] Albumin 3.6 3.2 - 5.0 g/dL LAB CHEMISTRY METHOD 01/29/2025 4:34 PM [facility] Total Bilirubin 0.3 0.0 - 1.4 mg/dL LAB CHEMISTRY METHOD 01/29/2025 4:34 PM [facility] Blood Venous blood specimen / Unknown Venipuncture / Unknown 01/29/2025 10:04 AM EDT 01/29/2025 10:04 AM EDT us Rosemarie Jara MD LAB BLOOD ORDERABLES Final Res ult [facility] [address] [place] [address], [place] [phone] * Pap Smear (10/28/2022) Pap smear no interpretation , abstracted us Historical Provider HEALTH MAINTENANCE Final Result from Last 3 Months or Most Recently Relevant to Health Maintenance Insurance [facility] Care Teams Manufacturing Engineer Assembly Relationship Specialty Start Date End Date Rosemarie Jara MD [address] [place] [phone] PCP - General Internal Medicine 02/06/19
--- OUTSIDE RECORDS SUMMARY | 2025-05-28 11:26 | XMS_ITS | Encounter Summary ---
Author Organization [facility] Address [address] [facility] [address] [place] [phone] Phone Care Team Providers Care Lamination Assembler Name Role Phone Emily Forbes MD Primary Care Provide r Rosemarie Jara MD Primary Care Provider [phone] Reason for Referral * Physical Therapy (Routine) - Closed Specialty Diagnoses / Procedures Referred By Hansa powell Referred To Contact Physical Therapy System, Provider Not In, [facility] [phone] [place] [address] Phone: tel: Referral ID Status Reason Start Date Expiration Date Visits Re quested Visits Authorized [id number] Closed 08/17/2017 09/27/2017 16 16 Encounter Details Date Type Department Care Team (Late st Contact Info) Description 08/20/2017 Transcribe Orders [facility] Rehabilitation Services [address] [place] [phone] Nate Shi MD [address] [place] [address] [address] [place] [address] Social History Tobacco Use Types Packs/Day Years [...] Scheduled Referrals Name Type Priority Associated Diagnoses Order Schedule Ambulatory referral to [facility] Physical Therapy Outpatient Referral Routine Ordered: 08/20/2017 documented as of this encounter Visit Diagnoses Not on filedocumented in this encounter Care Teams Lamination Assembler Relationship Specialty Start Date End Date Emily Forbes MD [address] [place] [address] PCP - General Geriatric Psychiatry 07/17/17 04/13/21 Rosemarie Jara MD [address] [place] [phone] PCP - General Internal Medicine 04/14/21 documented as of this encounter Additional Source Comments The information contained in this document represents components of the legal health record. It is not the complete legal health record.[facility]
== END 2025-05-28 09:51 | disposition home or self-care (01) ==
LOC: HO.HMGAL 09:50
PROVIDERS: Visit Provider Registered Nurse Emergency
DX: J30.89 Other allergic rhinitis (principal)
CPT/HCPCS: 95117; 95165

== ENCOUNTER 2025-06-25 11:23 | Outpatient (AMB) | payer BC, SELFPAY ==
--- OUTSIDE RECORDS SUMMARY | 2025-06-25 13:56 | XMS_ITS | Clinical Summary ---
Author Organization [facility] Address [address] [place] [address] Phone Care Team Providers Care Electronics Tester Name Role Phone Rosemarie Jara MD Primary Care Provider [phone] Allergies Active Allergy Reactions Criticality Noted Date Comments Ogjayxxz-Wowqkmnxqac-Bfzjajj nb Hives Medium 05/04/2018 TRIPLE OINTMENT CREAM [...] each day. 90 tablet 2 5 Active levalbuterol (XOPENEX HFA) 45 mcg/actuation [...] cephalexin (KEFLEX) 250 mg capsule 5 Active escitalopram (LEXAPRO) 20 mg tablet TAKE 1 TABLET(20 MG) BY MOUTH 1 TIME EACH DAY 30 tablet 1 5 Active Active Problems Problem Noted Date [...] 10:16 AM EDT Anesthesia Event [facility] Endoscopy [address] [place] [address] Isidro Tirado DO 04/13/2025 9:34 AM EDT - 04/13/2025 11:59 PM EDT Hospital Encounter [facility] Endoscopy [address] [place] [phone] Angélica España MD Guerin, Erik R, CRNA Walsh, Michael, DO Colon cancer screening Discharge Disposition: Home or Self Care from Last 3 Months Immunizations Immunization Administration Dates Next Due Pneumococcal conjugate 13 [...] Safety Answer Date Record ed Physical Abuse Unrecognized value 04/13/2025 Verbal Abuse Unrecognized value 04/13/2025 Comments No Sex and Gender Information [...] Description 03/20/2026 2:00 PM EDT Office Visit Pulmonology - [place] [address] [facility] [address] [place] [phone] Marsha Farrell MD [address] [place] [address] [place] [address] Health Maintenance Due Date Last Done Comments Breast Cancer Screening 1965 COVID-19 Vaccine (#1) 1969 Zoster Vaccines (1 of 2) 12/12/1983 Pneumococcal Vaccine: 50+ Years (3 of 3 - PCV20 or PCV21) 09/10/2016 07/16/2016, 07/25/2007 HIV [...] this topic Medical Devices Implanted Type Area Handle Maker Device Identifier Shelf Expiration Date Model / [...] Maintenance Results * COLONOSCOPY Anesthesia - MAC; [facility] ENDOSCOPY (04/13/2025 10:31 AM EDT) Anatomical Region Laterality Modality Endoscopy 04/13/2025 10:1 7 AM EDT Impressions 04/13/2025 10:31 AM EDT - The examined portion of the ileum was normal. - Internal hemorrhoids. - The entire examined colon is normal. - No specimens collected. Recommendation: - Repeat colonoscopy in 10 years for screening purposes. Narrative 04/13/2025 10:31 AM EDT [facility] GI Patient Name: Kendra Owusu Procedure [...] malignant neoplasm of colon CPT copyright 2020 [employer]. All rights reserved. The codes documented in this report are preliminary and upon solar pv installer review may be revised to meet current compliance requirements. Angélica España MD 04/13/2025 10:31:44 AM This report has been signed electronically.Angélica España MD Number of Addenda: 0 Note Initiated On: 04/13/2025 10:17 AM Scope In: Scope Out: Endoscopy Department at [facility] - [address] [place] [address] Procedure Note Angélica España MD - 04/13/2025 [facility] GI Patient Name: Kendra Owusu Procedure [...] for malignantneoplasm of colon CPT copyright 2020 [employer]. All rights reserved. The codes documented in this report are preliminary and upon solar pv installer reviewmay be revised to meet current compliance requirements. Angélica España MD 04/13/2025 10:31:44 AM This report has been signed electronically.Angélica España MD Number of Addenda: 0 Note Initiated On: 04/13/2025 10:17 AM Scope In: Scope Out: Endoscopy Department at [facility] - [address] [place] [phone] IMPRESSION: - The examined portion of the ileum was normal. - Internal hemorrhoids. - The entire examined colon is normal. - No specimens collected. Recommendation: - Repeat colonoscopy in 10 years for screening purposes. us Angélica España MD GI~PROCEDURE ORDERABLES Final Result * External Endoscopy (03/26/2025 11:02 AM EDT) Anatomical Region Laterality Modality Endoscopy Historical Provider GI~PROCEDURE ORDERABLES F inal Result * (ABNORMAL) Lipid panel with reflex to direct LDL (01/29/2025 10:04 AM EDT) Cholesterol 200 0 - 200 mg/dL LAB CHEMISTRY METHOD 01/29/2025 4:34 PM EDT [facility] Triglycerides 121 0 - 150 mg/dL LAB CHEMISTRY METHOD 01/29/2025 4:34 PM EDT [facility] HDL 60 >=40 mg/dL LAB CHEMISTRY METHOD 01/29/2025 4:34 PM EDT [facility] LDL Calculated 116(H) 0 - 100 mg/dL LAB CHEMISTRY METHOD 01/29/2025 4:34 PM EDT [facility] VLDL Cholesterol Omero 24.2 mg/dL LAB CHEMISTRY METHOD 01/29/2025 4:34 PM EDT [facility] Non HDL Chol. (LDL+VLDL) 140 <145 mg/dL LAB CHEMISTRY METHOD 01/29/2025 4:34 PM EDT [facility] Chol/HDL Ratio 3.3 0.0 - 4.4 LAB CHEMISTRY METHOD 01/29/2025 4:34 PM T [facility] Blood Venous blood specimen / Unknown Venipuncture / Unknown 01/29/2025 10:04 AM EDT 01/29/2025 10:04 AM EDT Rosemarie Jara MD LAB BLOOD ORDERABLES Final Res ult [facility] [address] [place] [address], [place] [phone] * (ABNORMAL) Comprehensive metabolic panel (01/29/2025 10:04 AM EDT) Sodium 143 133 - 145 mmol/L LAB CHEMISTRY METHOD 01/29/2025 4:[address] [facility] Potassium 5.1 3.5 - 5.5 mmol/L LAB CHEMISTRY METHOD 01/29/2025 4:[address] [facility] Chloride 111(H) 96 - 110 mmol/L LAB CHEMISTRY METHOD 01/29/2025 4:[address] [facility] CO2 27 21 - 32 mmol/L LAB CHEMISTRY METHOD 01/29/2025 4:[address] [facility] Anion Gap 5 3 - 11 LAB CHEMISTRY METHOD 01/29/2025 4:[address] [facility] Glucose 82 70 - 100 mg/dL LAB CHEMISTRY METHOD 01/29/2025 4:[address] [facility] BUN 16 5 - 25 mg/dL LAB CHEMISTRY METHOD 01/29/2025 4:[address] [facility] Creatinine 0.65 0.50 - 1.10 mg/dL LAB CHEMISTRY METHOD 01/29/2025 4:[address] [facility] eGFR 101 >=60 mL/min/1. 73m2 LAB CHEMISTRY METHOD 01/29/2025 4:[address] [facility] Comment:Calculation based on the Chronic Kidney Disease Epidemiology Collaboration (CKD-EPI) equation refit without adjustment for race. BUN/Creatinine Ratio 24.6 LAB CHEMISTRY METHOD 01/29/2025 4:[address] [facility] Calcium 8.8 8.5 - 10.5 mg/dL LAB CHEMISTRY METHOD 01/29/2025 4:[address] [facility] AST (SGOT) 26 10 - 42 unit/L LAB CHEMISTRY METHOD 01/29/2025 4:34 PM EDT [facility] ALT (SGPT) 36 10 - 60 unit/L LAB CHEMISTRY METHOD 01/29/2025 4:34 PM EDT [facility] Alkaline Phosphatase 103 42 - 121 unit/L LAB CHEMISTRY METHOD 01/29/2025 4:34 PM EDT [facility] Total Protein 6.7 6.0 - 8.0 g/dL LAB CHEMISTRY METHOD 01/29/2025 4:34 PM EDT [facility] Albumin 3.6 3.2 - 5.0 g/dL LAB CHEMISTRY METHOD 01/29/2025 4:34 PM EDT [facility] Total Bilirubin 0.3 0.0 - 1.4 mg/dL LAB CHEMISTRY METHOD 01/29/2025 4:34 PM EDT [facility] Blood Venous blood specimen / Unknown Venipuncture / Unknown 01/29/2025 10:04 AM EDT 01/29/2025 10:04 AM EDT Rosemarie Jara MD LAB BLOOD ORDERABLES Final Res ult [facility] [address] [place] [address], * Pap Smear (10/28/2022) Pap smear no interpretation , abstracted Historical Provider HEALTH MAINTENANCE Final Result from Last 3 Months or Most Recently Relevant to Health Maintenance Insurance [facility] Care Teams Electronics Tester Relationship Specialty Start Date End Date Rosemarie Jara MD [address] [facility] [address] [place] [phone] PCP - General Internal Medicine 02/06/19
--- OUTSIDE RECORDS SUMMARY | 2025-06-25 13:56 | XMS_ITS | Clinical Summary ---
Author Organization [facility] Address [address] [place] [phone] Phone Care Team Providers Care Stock Patcher Name Role Phone Rosemarie Jara MD Primary [...] Refills, Maintenance, 01/31/25 11:07:00 AM EDT, Ointment, [id number], Partial fill upon patient request if the prescription is for a schedule II opioid drug., Apply thin film to vulva daily x 2 weeks afterwards apply to area 2 to 3 times a week, 157, cm, 01/31/25 10:17:00 EDT, Height, 93.8, kg, 06/02/23 15:07:00 EDT, Dry Weight Active Active Problems Problem Noted Date Diagnosed Date Class 2 obesity 05/07/2023 05/07/2023 Immunizations Immunization Administration Dates Next Due INFLUENZA, [...] 07/01/2017, 07/04/2015, Additional history exists COVID-19 VACCINE ( - 2023- season) 2025 Adult Td,Tdap Booster [...] this topic Medical Devices Not on file Insurance [employer] [facility] [employer] [facility] [place] [address] [place] [address] [place] [address] [place] [address] [place] [address] [employer] Care Teams Stock Patcher Relationship Specialty Start Date End Date Rosemarie Jara MD [address] [place] [phone] PCP - General Internal Medicine 04/14/21 Additional Source Comments The information contained in this document represents components of the legal health record. It is not the complete legal health record.[facility]
--- OUTSIDE RECORDS SUMMARY | 2025-06-25 13:56 | XMS_ITS | Encounter Summary ---
Author Organization [facility] Address [address] [employer] [facility] [address] [place] [phone] Phone Care Team Providers Care Bsa Officer Name Role Phone Emily Forbes MD Primary Care Provide r Rosemarie Jara MD Primary Care Provider Reason for Referral * Physical Therapy (Routine) - Closed Specialty Diagnoses / Procedures Referred By Hansa powell Referred To Contact Physical Therapy Diagnoses Encounter for rehabilitation System, Provider Not In, [facility] [phone] [place] [address] Phone: tel: Referral ID Status Reason Start Date Expiration Date Visits Re quested Visits Authorized [id number] Closed 10/04/2017 02/08/2018 42 42 Encounter Details Date Type Department Care Team (Latest Contact Info) Description 10/14/2017 Transcribe Orders [facility] Rehabilitation Services [address] [place] [address] Nate Shi MD [address] [place] [address] [address] [place] [address] Encounter for rehabilitation (Primary Dx) Social History [...] Diagnoses Orde r Schedule Ambulatory referral to [facility] Physical Therapy Outpatient Referral Routine Encounter for rehabilitation Ordered: 10/14/2017 documented as of this encounter Visit Diagnoses Diagnosis Encounter for rehabilitation- Primary documented in this encounter Care Teams Bsa Officer Relationship Specialty Start Date End Date Emily Forbes MD [address] [place] [address] PCP - General Geriatric Psychiatry 07/17/17 04/13/21 Rosemarie Jara MD [address] [place] [phone] PCP - General Internal Medicine 04/14/21 documented as of this encounter Additional Source Comments The information contained in this document represents components of the legal health record. It is not the complete legal health record.[facility]
--- OUTSIDE RECORDS SUMMARY | 2025-06-25 13:56 | XMS_ITS | Encounter Summary ---
Author Organization [facility] Address [address] [employer] [facility] [address] [place] [address] Phone Care Team Providers Care Gear Technician Name Role Phone Emily Forbes MD Primary Care Provide r Rosemarie Jara MD Primary Care Provider [phone] Reason for Referral * Physical Therapy (Routine) - Closed Specialty Diagnoses / Procedures Referred By Hansa powell Referred To Contact Physical Therapy System, Provider Not In, [facility] [phone] [place] [address] Phone: tel: Referral ID Status Reason Start Date Expiration Date Visits Re quested Visits Authorized [id number] Closed 08/17/2017 09/27/2017 16 16 Encounter Details Date Type Department Care Team (Late st Contact Info) Description 08/20/2017 Transcribe Orders [facility] Rehabilitation Services [address] [place] [phone] Nate Shi MD [address] [place] [address] [address] [place] [address] Social History Tobacco Use Types Packs/Day Years [...] Associated Diagnoses Order Schedule Ambulatory referral to [facility] Physical Therapy Outpatient Referral Routine Ordered: 08/20/2017 documented as of this encounter Visit Diagnoses Not on filedocumented in this encounter Care Teams Gear Technician Relationship Specialty Start Date End Date Emily Forbes MD [address] [place] [address] PCP - General Geriatric Psychiatry 07/17/17 04/13/21 Rosemarie Jara MD [address] [place] [phone] PCP - General Internal Medicine 04/14/21 documented as of this encounter Additional Source Comments The information contained in this document represents components of the legal health record. It is not the complete legal health record.[facility]
== END 2025-06-25 11:33 | disposition home or self-care (01) ==
LOC: HO.HMGAL 11:23
PROVIDERS: Visit Provider Registered Nurse Emergency
DX: J30.89 Other allergic rhinitis (principal)
CPT/HCPCS: 95117; 95165

== ENCOUNTER 2025-07-23 09:13 | Outpatient (AMB) | payer BC, SELFPAY ==
--- OUTSIDE RECORDS SUMMARY | 2025-07-23 10:12 | XMS_ITS | Clinical Summary ---
Author Organization [facility] Address [address] [place] [address] Phone Care Team Providers Care Emergency Department Coordinator Name Role Phone Rosemarie Jara MD Primary [...] Refills, Maintenance, 01/31/25 11:07:00 AM EDT, Ointment, [id number], Partial fill upon patient request if the [...] Additional history exists COVID-19 VACCINE ( - 2024- season) 2025 Adult Td,Tdap Booster 07/12/2028 07/12/2018 [...] topic Medical Devices Not on file Insurance [employer] [facility] [employer] [facility] [place] [address] [place] [address] [place] [address] [place] [address] [employer] Care Teams Emergency Department Coordinator Relationship Specialty Start Date End Date Rosemarie Jara MD [address] [place] [phone] PCP - General Internal Medicine 04/14/21 Additional Source Comments The information contained in this document represents components of the legal health record. It is not the complete legal health record.[facility]
--- OUTSIDE RECORDS SUMMARY | 2025-07-23 10:12 | XMS_ITS | Encounter Summary ---
Author Organization [facility] Address [address] [employer] [facility] [address] [place] [address] Phone Care Team Providers Care Sales Recruiter Name Role Phone Emily Forbes MD Primary Care Provide r Rosemarie Jara MD Primary Care Provider Reason for Referral * Physical Therapy (Routine) - Closed Specialty Diagnoses / Procedures Referred By Hansa powell Referred To Contact Physical Therapy Diagnoses Encounter for rehabilitation System, Provider Not In, [facility] [phone] [place] [address] Phone: tel: Referral ID Status Reason Start Date Expiration Date Visits Re quested Visits Authorized [id number] Closed 10/04/2017 02/08/2018 42 42 Encounter Details Date Type Department Care Team (Latest Contact Info) Description 10/14/2017 Transcribe Orders [facility] Rehabilitation Services [address] [place] [address] Nate Shi MD [address] [place] [address] [address] [place] [address] Encounter for rehabilitation (Primary Dx) Social History [...] Diagnoses Orde r Schedule Ambulatory referral to [facility] Physical Therapy Outpatient Referral Routine Encounter for rehabilitation Ordered: 10/14/2017 documented as of this encounter Visit Diagnoses Diagnosis Encounter for rehabilitation- Primary documented in this encounter Care Teams Sales Recruiter Relationship Specialty Start Date End Date Emily Forbes MD [address] [place] [address] PCP - General Geriatric Psychiatry 07/17/17 04/13/21 Rosemarie Jara MD [address] [place] [phone] PCP - General Internal Medicine 04/14/21 documented as of this encounter Additional Source Comments The information contained in this document represents components of the legal health record. It is not the complete legal health record.[facility]
--- OUTSIDE RECORDS SUMMARY | 2025-07-23 10:13 | XMS_ITS | Encounter Summary ---
Author Organization [facility] Address [address] [employer] [facility] [address] [place] [address] Phone Care Team Providers Care Firestopper Technician Name Role Phone Emily Forbes MD Primary Care Provide r Rosemarie Jara MD Primary Care Provider Reason for Referral * Physical Therapy (Routine) - Closed Specialty Diagnoses / Procedures Referred By Hansa powell Referred To Contact Physical Therapy System, Provider Not In, [facility] [phone] [place] [address] Phone: tel: Referral ID Status Reason Start Date Expiration Date Visits Re quested Visits Authorized [id number] Closed 08/17/2017 09/27/2017 16 16 Encounter Details Date Type Department Care Team (Late st Contact Info) Description 08/20/2017 Transcribe Orders [facility] Rehabilitation Services [address] [place] [phone] Nate Shi MD [address] [place] [address] [address] [place] [address] Social History Tobacco Use Types Packs/Day Years [...] Associated Diagnoses Order Schedule Ambulatory referral to [facility] Physical Therapy Outpatient Referral Routine Ordered: 08/20/2017 documented as of this encounter Visit Diagnoses Not on filedocumented in this encounter Care Teams Firestopper Technician Relationship Specialty Start Date End Date Emily Forbes MD [address] [place] [address] PCP - General Geriatric Psychiatry 07/17/17 04/13/21 Rosemarie Jara MD [address] [place] [phone] PCP - General Internal Medicine 04/14/21 documented as of this encounter Additional Source Comments The information contained in this document represents components of the legal health record. It is not the complete legal health record.[facility]
== END 2025-07-23 09:15 | disposition home or self-care (01) ==
LOC: HO.HMGAL 09:13
PROVIDERS: Visit Provider Registered Nurse Emergency
DX: J30.89 Other allergic rhinitis (principal)
CPT/HCPCS: 95117; 95165

== ENCOUNTER 2025-08-29 11:23 | Outpatient (AMB) | payer BC, SELFPAY | END 2025-08-29 11:23 | disposition home or self-care (01) | LOC: HO.HMGAL 11:23 | PROVIDERS: PCP Internal Medicine; Visit Provider Registered Nurse Emergency | DX: J30.89 Other allergic rhinitis (principal) | CPT/HCPCS: 95117; 95165 ==